=== PATIENT | female | born 1950 | race Caucasian/White ===

== ENCOUNTER → 2019-04-25 | Outpatient (CLI) | payer MEDICARE ==
[~2019-04-25] MED LIST: AMLO5 PO; AMOCLA875 PO; ASPI325EC PO; ATOR20 PO; AZIT250 PO; BENZ100A PO; CLOP75 PO; Coq-10100 MG PO; FAMO20 PO; FURO20 PO; HYDR1TAB94 PO; IBUP800 PO; LISI5 PO; Laxative5 M1; METO50 PO; NEBI5 PO; Nitrostat0.4 MG SL; Norco 5-325 Ta1 EACH PO; OXYACE5T PO; OXYC10TA19; OXYC5; POTCHL10ER PO; XARELTO20 MG PO
== END | disposition home or self-care (01) ==
LOC: LAB SHORT 07:40 → PLD 07:40
DX: D48.5 Neoplasm of uncertain behavior of skin (principal)
CPT/HCPCS: 88304

== ENCOUNTER → 2021-03-04 | Outpatient (CLI) | payer MEDICARE, OTHER | END | disposition home or self-care (01) | LOC: LAB 10:02 → LAB SHORT 10:02 | DX: N39.0 Urinary tract infection, site not specified (principal) | CPT/HCPCS: 87086 ==

== ENCOUNTER 2022-08-19 06:40 | Inpatient (IN) | payer MEDICARE, OTHER ==
[~2022-08-19] VITALS: Ht 165.1 cm; Wt 94.0 kg
[~2022-08-19 06:40] MED LIST changes: +AMBIEN10 MG PO; +AMLO10 PO; +ASPI81CH PO; +ATORVASTATIN CA80 M1 PO; +BASAGLAR K100 UNIT/3 SC; +KLOR-CON 1010 ME1 PO; +METO100 PO; +OXYCODONE ACETAMINOP PO; +Percocet 5-3251 EACH PO; +XARELTO10 M1 PO; +Zestril30 MG PO
[2022-08-19 07:00] LABS: BASOPHILS ABSOLUTE AUTO 0.04 K/mm3 (0.00-0.23); BASOPHILS PERCENT AUTO 0 % (0-2); EOSINOPHILS ABSOLUTE AUTO 0.02 K/mm3 (0.00-0.68); EOSINOPHILS PERCENT AUTO 0 % (0-6); IMMATURE GRAN ABSOLUTE AUTO 0.11 K/mm3 (0.00-0.10); IMMATURE GRAN PERCENT AUTO 1 % (0-1); LYMPHOCYTES ABSOLUTE AUTO 3.07 K/mm3 (0.84-5.20); LYMPHOCYTES PERCENT AUTO 22 % (21-46); MONOCYTES PERCENT AUTO 6 % (4-13); Mean Corpuscular HGB 29.4 pg (26.0-34.0); Mean Corpuscular HGB Conc 31.6 g/dL (31.5-36.5); Mean Corpuscular Volume 93 fL (80-100); Mean Platelet Volume 9.2 fL (9.1-12.4); NEUTROPHILS ABSOLUTE AUTO 9.84 K/mm3 (1.96-9.15); NEUTROPHILS PERCENT AUTO 70 % (41-73); Platelet Count 372 K/mm3 (150-400); RDW Coefficient Variation 14.1 % (11.7-14.2); RDW Standard Deviation 47.1 fL (35.1-46.3); Red Blood Cell Count 1.87 M/mm3 (3.80-5.20); White Blood Cell Count 13.98 K/mm3 (4.00-11.30)
[2022-08-19 07:05] LABS: Hematocrit 17.4 % (33.0-51.0); Hemoglobin 5.5 g/dL (11.5-16.0)
[2022-08-19 07:18] LABS: Albumin/Globulin Ratio 0.6 (0.8-1.8); Bilirubin, Total 0.4 mg/dL (0.1-1.0); Bun/Creatinine Ratio 21.3 (12.0-20.0); Calcium, Blood 7.5 mg/dL (8.5-10.1); Creatinine, Blood 2.82 mg/dL (0.40-1.00); Globulin, Blood 3.1 g/dL (2.2-4.0); Potassium, Blood 4.8 mmol/L (3.5-5.5); Total Protein, Blood 5.1 g/dL (6.4-8.2)
[2022-08-19] MEDS ORDERED: AMLO5 PO (08:41)
[2022-08-19] MEDS ORDERED: NORVASC5 MG PO (08:42)
--- NOTE | 2022-08-19 10:30 | NUR ---
ARRIVAL TO UNIT PT ARRIVES TO ICU. PALE IN COLOR, ALERT AND ORIENTED. CURRENTLY ON RA. HR IN LOW 100S, IN AFIB. PT HAS 2ND UNIT OF PRBCS INFUSING AT THIS TIME, ALONG WITH PROTONIX GTT. PT. HAS BILATERAL IVS TO ACS. PT. REPORTS MILD ABD PAIN. SHE REPORTS SHE DIDNT TAKE ANY OF HER HOME MEDICATIONS TODAY AND WASNT SURE IF SHE TOOK THEM ALL YESTERDAY. PT. REPORTS FREQUENT FALLS AT HOME OF RECENT. SHE HAS BRUISES SCATTERED T/O ALONG WITH A RECENT LEFT HIP SURGERY. PT. HAS BRUISING AND MILD SWELLING TO SITE. ABLE TO NG AT THIS TIME. CALL LIGHT IN REACH.
--- NOTE | 2022-08-19 12:40 | NUR ---
UPDATE AFTER REGLAN ADMIN PT BECAME VERY UNCOMFORTABLE IN BED, RESTLESS, STATING "I DONT FEEL GOOD AT ALL", VERY PALE IN COLOR. PT. C/O ABD CRAMPING. FAN PLACED AT BEDSIDE, PT HYPOTENSIVE, NS 500ML BOLUS STARTED. ADDITIONAL IV ACCESS OBTAINED. PT REPORTS NAUSEA, ZOFRAN IV GIVEN PER EMAR. PT. REPORTS SOME RELIEF AFTER ZOFRAN ADMIN.
[2022-08-19 12:46] LABS: Hematocrit 21.5 % (33.0-51.0); Hemoglobin 7.3 g/dL (11.5-16.0)
--- NOTE | 2022-08-19 14:30 | NUR ---
CALL TO DR. EAGLE PT. CONTINUES TO BE HYPOTENSIVE, ADDITIONAL UNIT OF BLOOD ORDERED. RIGGINS ORDERED FOR STRICT I&O, PT HAS NOT VOIDED THIS SHIFT. PT. HAD ANOTHER MAROON BM. PT. FLUIDS CONTINUE AT 100ML/HR. PT. RESTING MORE COMFORTABY AT THIS TIME, DENIES ABD PAIN AT THIS TIME.
--- NOTE | 2022-08-19 15:15 | NUR ---
PT FAMILY AT BEDSIDE, UPDATED ON PT CONDITION. PRBCS INFUSING.
[2022-08-19 17:17] LABS: Source, Urine Foley catheter
[2022-08-19 17:24] LABS: Appearance, Urine Hazy (Clear); Blood, Urine 2+ (Neg); Color, Urine Yellow (P-Yellow); Glucose Qualitative, Urine Neg (Neg); Ketones, Urine Neg (Neg); Leukocyte Esterase, Urine 3+ (Neg); Nitrite, Urine Neg (Neg); Protein, Urine 2+ (Neg); Specific Gravity, Urine 1.015 (1.003-1.022); Urobilinogen, Urine NORM (Normal)
[2022-08-19 17:29] LABS: Bilirubin, Urine 1+ (Neg)
[2022-08-19 17:30] LABS: Bacteria Many /hpf; Squamous Epithelial Cells Few /hpf (Few); White Blood Cells, Urine 25-50 /hpf (0-5)
[2022-08-19 17:31] LABS: Transitional Epithelial Cells Few /hpf (0-Rare)
--- NOTE | 2022-08-19 18:52 | NUR ---
DR. FAIRBANKS IN TO SEE PT PLANS FOR SCOPE THIS PM HOWEVER LEVOPHED GTT INITIATED TO SUPPORT BP.
--- NOTE | 2022-08-19 18:53 | NUR ---
SHIFT SUMMARY PT. REMAINS ALERT AND ORIENTED. 2 LOOSE MAROON STOOLS TODAY, 3UNITS PRBCS INFUSED THIS SHIFT. PT. STARTED ON PERIPHERAL LEVOPHED FOR BP SUPPORT FOR SCOPE. PT. CONTINUES ON PROTONIX GTT WELL. VSS AT THIS TIME, REPORT TO ONCOMING RN.
[2022-08-19 19:48] LABS: Hematocrit 29.2 % (33.0-51.0); Hemoglobin 9.6 g/dL (11.5-16.0)
--- NOTE | 2022-08-19 19:50 | NUR ---
08/19/22 [address]ki Younger MAC [address] DR. GONZALEZ IN ICU 05; SEE ANESTHESIA RECORDS. 2% LIDOCAINE 5ML ATOMIZED TO BACK OF THROAT PRIOR TO PROCEDURE, ALONG WITH 2% VISCOUS LIDOCAINE 15ML PO PER MD ORDERS. SIMETHICONE USED DURING PROCEDURE.
--- NOTE | 2022-08-19 22:07 | NUR ---
ASSUMPTION OF CARE/ASSESSMENT: ASSUMED CARE OF PT AT 1900. DR FAIRBANKS AT BEDSIDE AT 1915 IN PREPARATION FOR EGD PROCEDURE. PT TOLERATED PROCEDURE WELL; ULCER FOUND IN THE DUODENUM. PROVIDER STATES THAT MEDICAL MANAGEMENT OF ULCER WITH PROTONIX AT THIS POINT AND TO OBSERVE FOR S/S OF UNSTABLE HEMODYNAMICS OR ACTIVE BLLEDING. PT IS IN BED AND HAS RECOVERED WELL FROM PROCEDURE. PT GAG REFLEC RETURNED AND DIET ADVANCED TOLERATED. PT SAFELY DRINKING WATER AND HAD DINNER. PT NOW SLEEPING AT THIS TIME. PT A&O X 4; VERY PLEASANT AND COOPERATIVE WITH CARE. PT STATES THAT SHE IS HARD OF HEARING. PT CURRENTLY ON NC @ 2LPM; LUNG SOUNDS ARE CLEAR WITH DIM BASES BILATERALLY. PT AFIB ON MONITOR WITH HR 100-120 AND SBP 90-100; LEVO GTT @ 4 MCG/KG/MIN. PT HAS MILDLY DISTENDED ABD THAT IS NON-TENDER, HYPOACTIVE BS IN ALL QUADRANTS AND NO C/O N/V AT THIS TIME. PT HAS RIGGINS IN PLACE THAT IS DRAINING TO GRAVITY. PPP X 4, SKIN IS WARM AND CAP REFIL < 3 SECONDS. PT HAS 18 8 RAC AND PG TO TESS. PROTONIX GTT @ 10 MLS/HR AND NS @ 100 MLS/HR. PT USING CALL LIGTH APPROPRIATELY, BED LOWERED, WILL CONTINUE TO MONITOR.
[2022-08-20 00:46] LABS: Hematocrit 21.1 % (33.0-51.0); Hemoglobin 7.4 g/dL (11.5-16.0)
[2022-08-20 05:07] LABS: BASOPHILS ABSOLUTE AUTO 0.07 K/mm3 (0.00-0.23); BASOPHILS PERCENT AUTO 0 % (0-2); EOSINOPHILS ABSOLUTE AUTO 0.03 K/mm3 (0.00-0.68); EOSINOPHILS PERCENT AUTO 0 % (0-6); Hematocrit 22.3 % (33.0-51.0); Hemoglobin 7.6 g/dL (11.5-16.0); IMMATURE GRAN ABSOLUTE AUTO 0.22 K/mm3 (0.00-0.10); IMMATURE GRAN PERCENT AUTO 1 % (0-1); LYMPHOCYTES ABSOLUTE AUTO 3.37 K/mm3 (0.84-5.20); LYMPHOCYTES PERCENT AUTO 22 % (21-46); MONOCYTES ABSOLUTE AUTO 1.18 K/mm3 (0.16-1.47); MONOCYTES PERCENT AUTO 8 % (4-13); Mean Corpuscular HGB 30.9 pg (26.0-34.0); Mean Corpuscular HGB Conc 34.1 g/dL (31.5-36.5); Mean Corpuscular Volume 91 fL (80-100); NEUTROPHILS ABSOLUTE AUTO 10.73 K/mm3 (1.96-9.15); NEUTROPHILS PERCENT AUTO 69 % (41-73); NRBC ABSOLUTE 0.02 K/mm3 (0.00-0.02); NRBC Auto 0.1 /100 WBC (0.0-0.2); Platelet Count 229 K/mm3 (150-400); RDW Standard Deviation 48.8 fL (35.1-46.3); Red Blood Cell Count 2.46 M/mm3 (3.80-5.20)
--- NOTE | 2022-08-20 06:11 | NUR ---
SHIFT SUMMARY: NO ACUTE CHANGES OVER NIGHT. VSS THROUGHOUT THE NIGHT. PT REPEAT HGB AT 0000 WAS 7.4 AND DOWN TWO POINTS FROM 1800 DRAW; DR MEDINA NOTIFIED AND ORDERS FOR ANOTHER UNIT OF PRBCS RECIEVED AT THIS TIME. UNIT IS ALMOST COMPLETE. LEVO GTT @ 6 MCG, PROTONIX GTT @ 10 MLS, AND NS GTT @ 100 MLS. PT HAD ONE SMALL LOOSE BM THAT HAD MAROON BLOOD NOTED, DR FAIRBANKS ANTICIPATED THIS AFTER PROCEDURE SO NO UPDATE CALLED TO PROVIDER. WILL CONTINUE TO MONITOR UNTIL ONCOMING RN ARRIVES.
--- NOTE | 2022-08-20 06:44 | NUR ---
SHIFT SUMMARY: NO ACUTE CHAGNES OVERNIGHT. VSS THROUGHOUT THE SHIFT. PT REMAINS VENTILATED AND SEDATED WITH VENT SETTINGS AC/VC 16/450/5/45% AND PROPOFOL GTT @ 30 MCG AND KETAMINE GTT @ 1.5. URINE OUTPUT 1200 THIS SHIFT. PT TOLERATING Q2HR TURNS. PT CONTINUES TO HAVE COPIOUS, THICK SECRETIONS FROM TRACH. WILL CONTINUE TO MONITOR UNTIL ONCOMING RN ARRIVES.
[2022-08-20 09:34] LABS: Test Name CHEM PROF
--- NOTE | 2022-08-20 09:44 | NUR ---
DR. EAGLE/HIP BLEEDING HIP DRESSING NOTED TO BE SATURATED WITH BLOOD, INCISION SITE OOZING BLOODY DRAINAGE. CALL TO DR. EAGLE TO DISCUSS, HE STATES THERE IS A LARGE HEMATOMA IN THE AREA PER IMAGING AND TO MONITOR THE SITE FOR NOW.
[2022-08-20 10:40] LABS: Hematocrit 23.8 % (33.0-51.0); Hemoglobin 7.9 g/dL (11.5-16.0)
--- NOTE | 2022-08-20 10:47 | NUR ---
INFORMED DR EAGLE OF H&H RESULT OF 7.9 HGB. ORDERS TO DRAW ANOTHER H&H IN 2 HOURS. NO BLOOD TRANS AT THIS TIME.
[2022-08-20 12:53] LABS: Hematocrit 22.7 % (33.0-51.0); Hemoglobin 7.7 g/dL (11.5-16.0)
[2022-08-20 12:59] LABS: Result SEE SEPERATE REPORT
[2022-08-20 14:15] LABS: Influenza A, PCR NEGATIVE (NEGATIVE); Influenza B, PCR NEGATIVE (NEGATIVE); Resp Syncytial Virus, PCR NEGATIVE (NEGATIVE); SARS-Cov-2 (COVID-19) PCR, MMC NEGATIVE (NEGATIVE)
[2022-08-20 16:14] LABS: International Normalized Ratio 1.13; Prothrombin Time Results 11.8 Sec (9.7-11.5)
--- NOTE | 2022-08-20 16:27 | NUR ---
PT OUT OF ROOM AT THIS TIME WITH EMS TO TRANSFER TO [facility] ICU. ALL BELONGINGS WITH PT. PUMP SET WITH LEVO AT 6 MCG SET UP. ALL VITALS WNL AT TIME OF DEPARTURE.
== END 2022-08-20 16:27 | disposition short-term general hospital (02) | DRG 811 ==
LOC: ER 06:40 → ICUW 06:41 → ICUE 06:41
PROVIDERS: Emergency Medicine; Student in an Organized Health Care Education/Training Program; ADMIT Family Medicine
PROC: 30233N1 Transfusion of Nonautologous Red Blood Cells into Peripheral Vein, Percutaneous Approach (ICD-10-PCS; 2022-08-19)
PROC: 3E033XZ Introduction of Vasopressor into Peripheral Vein, Percutaneous Approach (ICD-10-PCS; 2022-08-19)
PROC: 0DJ08ZZ Inspection of Upper Intestinal Tract, Via Natural or Artificial Opening Endoscopic (ICD-10-PCS; principal; 2022-08-19 11:45)
PROC: 0T9B70Z Drainage of Bladder with Drainage Device, Via Natural or Artificial Opening (ICD-10-PCS; 2022-08-20)
DX: D62 Acute posthemorrhagic anemia (principal); K25.4 Chronic or unspecified gastric ulcer with hemorrhage; K26.4 Chronic or unspecified duodenal ulcer with hemorrhage; N17.9 Acute kidney failure, unspecified; I13.0 Hypertensive heart and chronic kidney disease with heart failure and stage 1 through stage 4 chronic kidney disease, or unspecified chronic kidney disease; I48.20 Chronic atrial fibrillation, unspecified; I50.32 Chronic diastolic (congestive) heart failure; B19.10 Unspecified viral hepatitis B without hepatic coma; D63.1 Anemia in chronic kidney disease; J44.9 Chronic obstructive pulmonary disease, unspecified; Z66 Do not resuscitate; E11.22 Type 2 diabetes mellitus with diabetic chronic kidney disease; I95.9 Hypotension, unspecified; I25.10 Atherosclerotic heart disease of native coronary artery without angina pectoris; I08.1 Rheumatic disorders of both mitral and tricuspid valves; E11.51 Type 2 diabetes mellitus with diabetic peripheral angiopathy without gangrene; I65.29 Occlusion and stenosis of unspecified carotid artery; I49.5 Sick sinus syndrome; N18.30 Chronic kidney disease, stage 3 unspecified; E78.1 Pure hyperglyceridemia; E78.2 Mixed hyperlipidemia; H74.02 Tympanosclerosis, left ear; B95.2 Enterococcus as the cause of diseases classified elsewhere; S72.002D Fracture of unspecified part of neck of left femur, subsequent encounter for closed fracture with routine healing; Z20.822 Contact with and (suspected) exposure to COVID-19; Z96.642 Presence of left artificial hip joint; Z98.890 Other specified postprocedural states; Z86.73 Personal history of transient ischemic attack (TIA), and cerebral infarction without residual deficits; Z95.0 Presence of cardiac pacemaker; Z90.49 Acquired absence of other specified parts of digestive tract; Z79.899 Other long term (current) drug therapy; Z79.01 Long term (current) use of anticoagulants; Z79.4 Long term (current) use of insulin; Z79.02 Long term (current) use of antithrombotics/antiplatelets; Z79.811 Long term (current) use of aromatase inhibitors; Z79.891 Long term (current) use of opiate analgesic; Z86.79 Personal history of other diseases of the circulatory system; Z95.828 Presence of other vascular implants and grafts; Z87.891 Personal history of nicotine dependence
CPT/HCPCS: 0241U; 36415; 36430; 51703; 74177; 80053; 81001; 82947; 83690; 85014; 85018; 85025; 85610; 86850; 86900; 86901; 86923; 87077; 87086; 87186; 96361; 96365-59; 96366; 96375; 96376; 99285-25; A9270; C1751; C9113; J0171; J1430; J2250; J2405; J2765; J7030; J7050; J7060; J7120; P9016; Q9967

== ENCOUNTER 2022-12-01 10:00 | Day surgery (SDC) | payer MEDICARE, OTHER ==
[~2022-12-01 10:00] MED LIST changes: +NORVASC5 MG PO
== END 2022-12-01 10:40 | disposition home or self-care (01) ==
LOC: ORSCSDS 10:00
DX: K27.9 Peptic ulcer, site unspecified, unspecified as acute or chronic, without hemorrhage or perforation (principal); Z53.9 Procedure and treatment not carried out, unspecified reason
CPT/HCPCS: J2704; J7120

== ENCOUNTER 2023-05-31 02:09 | Emergency (ER) | payer MEDICARE, OTHER ==
[~2023-05-31] VITALS: Ht 167.6 cm; Wt 90.7 kg
[2023-05-31] MEDS ORDERED: Ibuprofen600 MG PO (04:18)
[2023-05-31 05:00] VITALS: BP 143/86
== END 2023-05-31 05:10 | disposition home or self-care (01) ==
LOC: ER 02:09
DX: S52.571A Other intraarticular fracture of lower end of right radius, initial encounter for closed fracture (principal); I11.0 Hypertensive heart disease with heart failure; I50.32 Chronic diastolic (congestive) heart failure; J44.9 Chronic obstructive pulmonary disease, unspecified; W18.30XA Fall on same level, unspecified, initial encounter; Z79.4 Long term (current) use of insulin; Z79.899 Other long term (current) drug therapy; Z95.0 Presence of cardiac pacemaker
CPT/HCPCS: 29125; 71045; 73070; 73110; 93005; 93010; 96374; 99284-25; J3010

== ENCOUNTER 2025-01-28 05:05 | Emergency (ER) | payer MEDICARE, OTHER ==
[~2025-01-28] VITALS: Ht 175.3 cm; Wt 81.7 kg
[~2025-01-28 05:05] MED LIST changes: +Ibuprofen600 MG PO
[2025-01-28 05:57] VITALS: BP 166/79
[2025-01-28 08:30] LABS: BASOPHILS ABSOLUTE AUTO 0.04 K/mm3 (0.00-0.23); BASOPHILS PERCENT AUTO 0 % (0-2); EOSINOPHILS ABSOLUTE AUTO 0.04 K/mm3 (0.00-0.68); EOSINOPHILS PERCENT AUTO 0 % (0-6); Hematocrit 31.4 % (33.0-51.0); Hemoglobin 10.5 g/dL (11.5-16.0); IMMATURE GRAN ABSOLUTE AUTO 0.04 K/mm3 (0.00-0.10); IMMATURE GRAN PERCENT AUTO 0 % (0-1); LYMPHOCYTES ABSOLUTE AUTO 2.20 K/mm3 (0.84-5.20); LYMPHOCYTES PERCENT AUTO 24 % (21-46); MONOCYTES ABSOLUTE AUTO 0.81 K/mm3 (0.16-1.47); MONOCYTES PERCENT AUTO 9 % (4-13); Mean Corpuscular HGB Conc 33.4 g/dL (31.5-36.5); Mean Corpuscular Volume 90 fL (80-100); NEUTROPHILS ABSOLUTE AUTO 6.06 K/mm3 (1.96-9.15); NEUTROPHILS PERCENT AUTO 66 % (41-73); NRBC ABSOLUTE 0.00 K/mm3 (0.00-0.02); NRBC Auto 0.0 /100 WBC (0.0-0.2); Platelet Count 230 K/mm3 (150-400); RDW Coefficient Variation 13.2 % (11.7-14.2); RDW Standard Deviation 43.0 fL (35.1-46.3)
[2025-01-28] MEDS ORDERED: FentaNYL Citrate 50 MCG/ML 2 ML Injection IV ONE (08:40)
[2025-01-28] MEDS ORDERED: Ondansetron HCl 2 MG / ML 2ML Vial IV ONE (08:40)
[2025-01-28 08:47] LABS: Alanine Aminotransfer (ALT/SGP 19.0 U/L (12-78); Albumin, Blood 3.5 g/dL (3.4-5.0); Albumin/Globulin Ratio 0.9 (0.8-1.8); Anion Gap 9.0 mmol/L (3-11); Aspartate Aminotrans (AST/SGOT 17.0 U/L (12-37); Bilirubin, Total 0.9 mg/dL (0.1-1.0); Blood Urea Nitrogen 22.0 mg/dL (8-24); CO2, Blood 28.0 mmol/L (21-32); Calcium, Blood 8.8 mg/dL (8.5-10.1); Chloride, Blood 105.0 mmol/L (98-108); Creatinine, Blood 1.0 mg/dL (0.40-1.00); Globulin, Blood 4.0 g/dL (2.2-4.0); Glucose, Blood 124.0 mg/dL (70-99); Potassium, Blood 4.0 mmol/L (3.5-5.5); Sodium, Blood 138.0 mmol/L (136-145); Total Protein, Blood 7.5 g/dL (6.4-8.2)
[2025-01-28] MEDS ORDERED: HYDR1TAB94 PO (09:17)
== END 2025-01-28 09:38 | disposition home or self-care (01) ==
LOC: ER 05:05
PROVIDERS: Emergency Medicine
DX: S00.83XA Contusion of other part of head, initial encounter (principal); S40.022A Contusion of left upper arm, initial encounter; S40.021A Contusion of right upper arm, initial encounter; S70.02XA Contusion of left hip, initial encounter; W18.39XA Other fall on same level, initial encounter; I25.10 Atherosclerotic heart disease of native coronary artery without angina pectoris; I48.20 Chronic atrial fibrillation, unspecified; I11.0 Hypertensive heart disease with heart failure; I50.32 Chronic diastolic (congestive) heart failure; J44.9 Chronic obstructive pulmonary disease, unspecified; E78.5 Hyperlipidemia, unspecified; Z88.8 Allergy status to other drugs, medicaments and biological substances; Z79.4 Long term (current) use of insulin; Z79.899 Other long term (current) drug therapy
CPT/HCPCS: 70450; 70486; 72125; 73030; 73502; 80053; 85025; J2405; J3010